=== PATIENT | female | born 1985 | race Caucasian/White ===

== ENCOUNTER 2023-01-31 17:43 | Emergency (ER) | payer OTHER, MEDICAID ==
[~2023-01-31] VITALS: Ht 167.6 cm; Wt 95.5 kg
--- NOTE | 2023-01-31 19:16 | NUR ---
AIRWAY IS PATENT. RESPIRATIONS ARE EVEN AND UNLABORED. RADIAL PULSE IS 78.
[2023-01-31] MEDS ORDERED: naproxen 500mg tablet PO ONE (21:45)
[2023-01-31] MEDS ORDERED: HYDROcodone/acetaminophen 10/325mg tab PO ONE (21:45)
--- NOTE | 2023-01-31 22:05 | NUR ---
records from [facility] visit re'cd
[2023-01-31 22:37] VITALS: BP 117/79; PULSE 80; RESP 18; TEMP 97.7; O2SAT 95
[2023-01-31] MEDS ORDERED: NAPR-56 PO (22:42)
[2023-01-31] MEDS ORDERED: TRAM50TA2 PO (22:42)
== END 2023-01-31 22:46 | disposition home or self-care (01) ==
LOC: ER 17:44
DX: M79.10 Myalgia, unspecified site (principal); V87.7XXA Person injured in collision between other specified motor vehicles (traffic), initial encounter; Y93.89 Activity, other specified; Y92.89 Other specified places as the place of occurrence of the external cause; Y99.8 Other external cause status
CPT/HCPCS: 71045; 93005; 99283

== ENCOUNTER 2025-01-26 17:47 | Emergency (ER) | payer MEDICAID ==
[~2025-01-26] VITALS: Ht 167.6 cm; Wt 110.9 kg
--- NOTE | 2025-01-26 18:08 | Physician Documentation ---
History of Present Illness ~ Chief Complaint: Toe pain Stated Complaint: TOE PAIN Time Seen by MD: 19:06 Primary Medical Doctor: FELICIA ALAMO HPI Patient is seen today with complaints of pain of the 4th and 5th digits of her left foot after tripping over something and smashing her foot into the wall. She states this occurred just last night. She has no other concern or complaint at this time. Tetanus witin 5 years: Yes Medication Reconciliation Allergies: Coded Allergies: Penicillins (Verified Allergy, Unknown, 01/26/25) Past Medical History Past Medical History: Fibromyalgia Past Surgical History: noncontributory Alcohol Use: Rarely Drug Use: none Lives with: Family Lives In: Home Review of Systems All Other Systems at this time: Reviewed and Negative ROS As stated above in the HPI, otherwise all systems are reviewed and negative. Physical Exam Vital Signs: Temperature: 97.8, Source: Oral, Heart Rate: 89, Respiratory Rate: 18, BP: 141/78, Pulse Oximetry: 98, Weight: 110.900 Oxygen Flow Rate: 0 Physical Exam General: Alert, no apparent distress. HEENT: PERRL, EOMI, no injection, moist mucous membranes. Extremities: Normal range of motion, mild swelling left great toe no ecchymosis or deformity Neurologic: Oriented x4. Psychiatric: Normal mood and affect. Skin: Normal color, warm and dry. No edema, no ecchymosis. Progress Results/Orders Results/Orders Vital Signs 01/26/25 18:04 Temp 97.8 Pulse 89 Resp 18 B/P (MAP) 141/78 Pulse Ox 98 O2 Flow Rate 0 Medical Decision Making Findings I could not appreciate any signs of acute fracture in his patient's foot x-ray. I suspect metatarsal phalangeal joint sprain. Offer rashaun taping and the rice method Departure Disposition: HOME / SELF CARE / HOMELESS Impression: Primary Impression: Toe swelling Condition: Stable Discharge Instructions: Turf Toe Additional Instructions: Were no signs of acute fracture in your x-ray. You can use ice in the rashaun taping meth and to help with pain and inflammation along with taking ibuprofen Referrals: NO PRIMARY CARE PROVIDER (PCP) Education Educated: Patient Educated regarding: diagnosis Signature Scribe Signature: d Attestation: Scribed for Delfin Urbina Commercial Credit Reviewer by Delfin Nieves NP . 9/30/25 19:35 YISEL DELGADO PAC Jan 26, 2025 18:08 DELFIN URBINA STERILIZATION SPECIALIST Jan 26, 2025 19:35
--- NOTE | 2025-01-26 19:11 | RADIOLOGY REPORT ---
CLINICAL INDICATION: TOE PAIN LEFT TECHNIQUE: Left DI TOE(S) Comparison: None FINDINGS/IMPRESSION: : There is no evidence of acute fracture or dislocation. Soft tissues are unremarkable.
[2025-01-26 19:53] VITALS: BP 140/77; PULSE 88; RESP 16; TEMP 98.6; O2SAT 99
== END 2025-01-26 19:55 | disposition home or self-care (01) ==
LOC: ER 17:48
DX: M79.89 Other specified soft tissue disorders (principal); M79.7 Fibromyalgia; Z88.0 Allergy status to penicillin
CPT/HCPCS: 73660; 99283